=== PATIENT | female | born 1930 | race Caucasian/White ===

== ENCOUNTER 2018-04-25 19:59 | Inpatient (IN) | payer MEDICARE, BC ==
[~2018-04-25] VITALS: Ht 157.5 cm; Wt 63.5 kg
[2018-04-25] MEDS ORDERED: Z GUARD REMEDY PASTE 57 GM TUBE TOP PRN (20:15)
[2018-04-25] MEDS ORDERED: ACET-73 PO (20:22)
[2018-04-25] MEDS ORDERED: PRAS10TA5 PO (20:22)
[2018-04-25] MEDS ORDERED: TRAZ-213 PO (20:22)
[2018-04-25] MEDS ORDERED: ALPR0.5T8 PO (20:22)
[2018-04-25] MEDS ORDERED: METO50TA16 PO (20:22)
[2018-04-25] MEDS ORDERED: ENOX40DI SQ (20:22)
[2018-04-25] MEDS ORDERED: OXYC-128 PO (20:22)
[2018-04-25] MEDS ORDERED: ATOR40TA PO (20:22)
[2018-04-25] MEDS ORDERED: ASPI-605 PO (20:22)
[2018-04-25] MEDS ORDERED: OXYB10TA4 PO (20:22)
[2018-04-26 05:20] VITALS: BP 131/67
[2018-04-26 08:00] VITALS: BP 110/63
[2018-04-26] MEDS ORDERED: MISCELLANEOUS MED XX PRN (08:00)
[2018-04-26] MEDS ORDERED: OXYCODONE/APAP 5-325 MG TABLET PO PRN (08:00)
[2018-04-26] MEDS ORDERED: ACETAMINOPHEN ES 500 MG TABLET PO PRN (08:00)
[2018-04-26] MEDS: ALPRAZOLAM 0.5 MG TABLET PO SCH (09:23)
[2018-04-26] MEDS: OXYCODONE HCL 10 MG TAB.SR.12H PO SCH ×2 (09:36→21:04)
[2018-04-26] MEDS: OXYBUTYNIN XL 5 MG TABSR PO SCH (09:37)
[2018-04-26] MEDS: ENOXAPARIN SODIUM 40 MG/0.4 ML DISP.SYRIN SQ SCH (09:59)
[2018-04-26 16:00] VITALS: BP 95/50
[2018-04-26] MEDS: ASPIRIN EC 81 MG TABLET.DR PO SCH (17:09)
[2018-04-26] MEDS: OXYCODONE/APAP 5-325 MG TABLET PO PRN (17:10)
[2018-04-26] MEDS: TRAZODONE 50 MG TABLET PO SCH (21:02)
[2018-04-26] MEDS: ATORVASTATIN 40 MG TABLET PO SCH (21:02)
[2018-04-26] MEDS: METOPROLOL TARTRATE 50 MG TABLET PO SCH (21:03)
[2018-04-26 21:15] VITALS: BP 115/65
[2018-04-27 05:29] VITALS: BP 104/53
[2018-04-27 07:30] VITALS: BP 128/64
[2018-04-27] MEDS: OXYCODONE HCL 10 MG TAB.SR.12H PO SCH ×2 (08:54→20:59)
[2018-04-27] MEDS: ALPRAZOLAM 0.5 MG TABLET PO SCH (08:54)
[2018-04-27] MEDS: OXYBUTYNIN XL 5 MG TABSR PO SCH (08:55)
[2018-04-27] MEDS: ENOXAPARIN SODIUM 40 MG/0.4 ML DISP.SYRIN SQ SCH (09:00)
[2018-04-27] MEDS: OXYCODONE/APAP 5-325 MG TABLET PO PRN (14:44)
[2018-04-27 16:00] VITALS: BP 125/73
[2018-04-27] MEDS: ASPIRIN EC 81 MG TABLET.DR PO SCH (17:23)
[2018-04-27 20:35] VITALS: BP 129/67
[2018-04-27] MEDS: PRASUGREL 10 MG PO SCH (20:57)
[2018-04-27] MEDS: ATORVASTATIN 40 MG TABLET PO SCH (20:58)
[2018-04-27] MEDS: TRAZODONE 50 MG TABLET PO SCH (20:58)
[2018-04-27] MEDS: METOPROLOL TARTRATE 50 MG TABLET PO SCH (20:58)
[2018-04-28 05:05] VITALS: BP 96/57
[2018-04-28 07:35] VITALS: BP 92/45
[2018-04-28 07:48] LABS: ALANINE AMINOTRANSFERASE 16 U/L (14-59); ALKALINE PHOSPHATASE 60 U/L (50-136); ASPARTATE AMINOTRANSFERASE 18 U/L (15-37); BILIRUBIN,TOTAL 0.7 mg/dL (0.2-1.0); CARBON DIOXIDE 25 mmol/L (21-32); CHLORIDE 102 mmol/L (98-107); CREATININE 1.1 mg/dL (0.6-1.3); GLUCOSE 115 mg/dL (74-106); MAGNESIUM 1.8 mg/dL (1.8-2.4); PHOSPHOROUS 3.4 mg/dL (2.5-4.9); TOTAL PROTEIN, SERUM 6.8 g/dL (6.4-8.2); UREA NITROGEN, BLOOD 27 mg/dL (7-18)
[2018-04-28 07:49] LABS: BASOPHILS # (AUTO) 0.1 K/uL (0.0-8.0); BASOPHILS % (AUTO) 0.6 % (0.0-2.0); EOSINOPHILS # (AUTO) 0.4 K/uL (0.0-0.7); EOSINOPHILS % (AUTO) 3.7 % (0.0-7.0); HEMATOCRIT 28.3 % (31.2-41.9); HEMOGLOBIN 9.7 g/dL (10.9-14.3); LYMPHOCYTES # (AUTO) 2.6 K/uL (20.0-40.0); MEAN CORPUSCULAR HEMOGLOBIN 30.6 uug (24.7-32.8); MEAN CORPUSCULAR HGB CONC 34 g/dL (32.3-35.6); MEAN CORPUSCULAR VOLUME 89.3 fL (75.5-95.3); MONOCYTES # (AUTO) 0.9 K/uL (2.0-10.0); MONOCYTES % (AUTO) 7.8 % (0.0-11.0); NEUTROPHILS # (AUTO) 7.9 K/uL (1.8-8.9); NEUTROPHILS % (AUTO) 65.9 % (38.5-71.5); PLATELET COUNT (AUTO) 306 K/uL (179-408); RED BLOOD CELL COUNT(AUTO) 3.17 MIL/uL (3.63-4.92)
[2018-04-28] MEDS: OXYBUTYNIN XL 5 MG TABSR PO SCH (08:31)
[2018-04-28] MEDS: ENOXAPARIN SODIUM 40 MG/0.4 ML DISP.SYRIN SQ SCH (08:31)
[2018-04-28] MEDS: OXYCODONE/APAP 5-325 MG TABLET PO PRN (08:32)
[2018-04-28] MEDS: ALPRAZOLAM 0.5 MG TABLET PO SCH (08:32)
[2018-04-28] MEDS: OXYCODONE HCL 10 MG TAB.SR.12H PO SCH ×2 (08:33→20:56)
[2018-04-28 15:05] VITALS: BP 92/40
[2018-04-28] MEDS: ASPIRIN EC 81 MG TABLET.DR PO SCH (17:37)
[2018-04-28 19:30] VITALS: BP 119/62
[2018-04-28] MEDS: ATORVASTATIN 40 MG TABLET PO SCH (20:54)
[2018-04-28] MEDS: TRAZODONE 50 MG TABLET PO SCH (20:54)
[2018-04-28] MEDS: PRASUGREL 10 MG PO SCH (20:54)
[2018-04-28] MEDS: METOPROLOL TARTRATE 50 MG TABLET PO SCH (20:57)
[2018-04-29 04:20] VITALS: BP 102/51
[2018-04-29 07:26] LABS: BASOPHILS # (AUTO) 0.1 K/uL (0.0-8.0); BASOPHILS % (AUTO) 0.7 % (0.0-2.0); EOSINOPHILS # (AUTO) 0.3 K/uL (0.0-0.7); EOSINOPHILS % (AUTO) 2.7 % (0.0-7.0); HEMATOCRIT 26.8 % (31.2-41.9); HEMOGLOBIN 9.1 g/dL (10.9-14.3); LYMPHOCYTES # (AUTO) 1.7 K/uL (20.0-40.0); LYMPHOCYTES % (AUTO) 13.8 % (20.5-51.5); MEAN CORPUSCULAR HEMOGLOBIN 30.1 uug (24.7-32.8); MEAN CORPUSCULAR HGB CONC 34 g/dL (32.3-35.6); MEAN CORPUSCULAR VOLUME 88.8 fL (75.5-95.3); MONOCYTES % (AUTO) 8.7 % (0.0-11.0); NEUTROPHILS # (AUTO) 8.9 K/uL (1.8-8.9); NEUTROPHILS % (AUTO) 74.1 % (38.5-71.5); PLATELET COUNT (AUTO) 293 K/uL (179-408); RED BLOOD CELL COUNT(AUTO) 3.01 MIL/uL (3.63-4.92)
[2018-04-29 07:30] VITALS: BP 100/50
[2018-04-29 07:37] LABS: ALANINE AMINOTRANSFERASE 16 U/L (14-59); ALKALINE PHOSPHATASE 71 U/L (50-136); ASPARTATE AMINOTRANSFERASE 16 U/L (15-37); BILIRUBIN,TOTAL 0.7 mg/dL (0.2-1.0); CARBON DIOXIDE 26 mmol/L (21-32); CHLORIDE 102 mmol/L (98-107); GLUCOSE 118 mg/dL (74-106); MAGNESIUM 1.9 mg/dL (1.8-2.4); PHOSPHOROUS 3.7 mg/dL (2.5-4.9); POTASSIUM 3.8 mmol/L (3.5-5.1); TOTAL PROTEIN, SERUM 6.6 g/dL (6.4-8.2); UREA NITROGEN, BLOOD 25 mg/dL (7-18)
[2018-04-29] MEDS: OXYBUTYNIN XL 5 MG TABSR PO SCH (08:54)
[2018-04-29] MEDS: ALPRAZOLAM 0.5 MG TABLET PO SCH (08:55)
[2018-04-29] MEDS: OXYCODONE HCL 10 MG TAB.SR.12H PO SCH ×2 (08:55→21:08)
[2018-04-29] MEDS: ENOXAPARIN SODIUM 40 MG/0.4 ML DISP.SYRIN SQ SCH (08:57)
[2018-04-29 16:00] VITALS: BP 97/53
[2018-04-29] MEDS: ASPIRIN EC 81 MG TABLET.DR PO SCH (17:03)
[2018-04-29 19:30] VITALS: BP 105/55
[2018-04-29] MEDS: METOPROLOL TARTRATE 50 MG TABLET PO SCH (21:00)
[2018-04-29] MEDS: ATORVASTATIN 40 MG TABLET PO SCH (21:05)
[2018-04-29] MEDS: TRAZODONE 50 MG TABLET PO SCH (21:05)
[2018-04-29] MEDS: PRASUGREL 10 MG PO SCH (21:08)
[2018-04-29 22:51] LABS: *BILIRUBIN,URIN NEGATIVE (NEGATIVE); *BLOOD, URINE NEGATIVE (NEGATIVE); *CLARITY,URINE SLIGHTLY CLOUDY (CLEAR); *COLOR,URINE YELLOW (YELLOW); *KETONES,URINE NEGATIVE (NEGATIVE); *PROTEIN,URINE NEGATIVE (NEGATIVE); *UROBILINOGEN,URINE 0.2 E.U./dl (NORMAL); LEUKOCYTE ESTERASE ,URINE NEGATIVE (NEGATIVE); NITRITE, URINE NEGATIVE (NEGATIVE); PH,URINE 5.5 (5.0-8.0); UGLUCOSE NEGATIVE (NEGATIVE)
[2018-04-30 04:30] VITALS: BP 111/58
[2018-04-30 07:30] VITALS: BP 103/53
[2018-04-30] MEDS: ALPRAZOLAM 0.5 MG TABLET PO SCH (09:37)
[2018-04-30] MEDS: OXYBUTYNIN XL 5 MG TABSR PO SCH (09:38)
[2018-04-30] MEDS: OXYCODONE HCL 10 MG TAB.SR.12H PO SCH ×2 (09:38→20:53)
[2018-04-30] MEDS: ENOXAPARIN SODIUM 40 MG/0.4 ML DISP.SYRIN SQ SCH (09:39)
[2018-04-30 16:00] VITALS: BP 98/58
[2018-04-30] MEDS: ASPIRIN EC 81 MG TABLET.DR PO SCH (17:39)
[2018-04-30 19:30] VITALS: BP 107/53
[2018-04-30] MEDS: METOPROLOL TARTRATE 50 MG TABLET PO SCH (22:00)
[2018-04-30] MEDS: ATORVASTATIN 40 MG TABLET PO SCH (22:00)
[2018-04-30] MEDS: PRASUGREL 10 MG PO SCH (22:01)
[2018-04-30] MEDS: TRAZODONE 50 MG TABLET PO SCH (22:01)
[2018-05-01 04:00] VITALS: BP 105/58
[2018-05-01 07:24] LABS: BASOPHILS # (AUTO) 0.1 K/uL (0.0-8.0); BASOPHILS % (AUTO) 0.9 % (0.0-2.0); EOSINOPHILS # (AUTO) 0.6 K/uL (0.0-0.7); EOSINOPHILS % (AUTO) 5.8 % (0.0-7.0); HEMATOCRIT 24.6 % (31.2-41.9); HEMOGLOBIN 8.6 g/dL (10.9-14.3); LYMPHOCYTES # (AUTO) 2.5 K/uL (20.0-40.0); LYMPHOCYTES % (AUTO) 26.3 % (20.5-51.5); MEAN CORPUSCULAR HEMOGLOBIN 31.1 uug (24.7-32.8); MEAN CORPUSCULAR HGB CONC 35 g/dL (32.3-35.6); MONOCYTES # (AUTO) 0.8 K/uL (2.0-10.0); MONOCYTES % (AUTO) 8.8 % (0.0-11.0); NEUTROPHILS # (AUTO) 5.6 K/uL (1.8-8.9); NEUTROPHILS % (AUTO) 58.2 % (38.5-71.5); PLATELET COUNT (AUTO) 346 K/uL (179-408); RED BLOOD CELL COUNT(AUTO) 2.76 MIL/uL (3.63-4.92); WHITE BLOOD COUNT (AUTO) 9.6 K/uL (3.8-11.8)
[2018-05-01 08:00] VITALS: BP 88/45
[2018-05-01] MEDS: ALPRAZOLAM 0.5 MG TABLET PO SCH (09:18)
[2018-05-01] MEDS: OXYBUTYNIN XL 5 MG TABSR PO SCH (09:18)
[2018-05-01] MEDS: OXYCODONE HCL 10 MG TAB.SR.12H PO SCH ×2 (09:20→20:26)
[2018-05-01] MEDS: ENOXAPARIN SODIUM 40 MG/0.4 ML DISP.SYRIN SQ SCH (09:21)
[2018-05-01 16:00] VITALS: BP 95/52
[2018-05-01] MEDS: ASPIRIN EC 81 MG TABLET.DR PO SCH (17:01)
[2018-05-01] MEDS: PRASUGREL 10 MG PO SCH (20:21)
[2018-05-01] MEDS: TRAZODONE 50 MG TABLET PO SCH (20:21)
[2018-05-01] MEDS: ATORVASTATIN 40 MG TABLET PO SCH (20:21)
[2018-05-01] MEDS: METOPROLOL TARTRATE 50 MG TABLET PO SCH (20:26)
[2018-05-01 20:32] VITALS: BP 104/54
[2018-05-02] MEDS: OXYCODONE/APAP 5-325 MG TABLET PO PRN (04:06)
[2018-05-02 08:00] VITALS: BP 90/52
[2018-05-02] MEDS: ALPRAZOLAM 0.5 MG TABLET PO SCH (08:22)
[2018-05-02] MEDS: OXYCODONE HCL 10 MG TAB.SR.12H PO SCH ×2 (08:23→21:00)
[2018-05-02] MEDS: ENOXAPARIN SODIUM 40 MG/0.4 ML DISP.SYRIN SQ SCH (08:25)
[2018-05-02] MEDS: OXYBUTYNIN XL 5 MG TABSR PO SCH (09:01)
[2018-05-02 15:51] VITALS: BP 95/53
[2018-05-02] MEDS ORDERED: MAGNESIUM HYDROXIDE 30 ML LIQUID UDC PO PRN (16:15)
[2018-05-02] MEDS: ASPIRIN EC 81 MG TABLET.DR PO SCH (16:54)
[2018-05-02 20:29] VITALS: BP 98/47
[2018-05-02] MEDS: METOPROLOL TARTRATE 50 MG TABLET PO SCH (21:00)
[2018-05-02] MEDS: ATORVASTATIN 40 MG TABLET PO SCH (21:34)
[2018-05-02] MEDS: TRAZODONE 50 MG TABLET PO SCH (21:34)
[2018-05-02] MEDS: PRASUGREL 10 MG PO SCH (21:34)
[2018-05-03 04:40] VITALS: BP 111/54
[2018-05-03 07:05] LABS: BASOPHILS # (AUTO) 0.1 K/uL (0.0-8.0); BASOPHILS % (AUTO) 1.2 % (0.0-2.0); EOSINOPHILS # (AUTO) 0.5 K/uL (0.0-0.7); HEMATOCRIT 25.6 % (31.2-41.9); HEMOGLOBIN 8.8 g/dL (10.9-14.3); LYMPHOCYTES # (AUTO) 2.4 K/uL (20.0-40.0); LYMPHOCYTES % (AUTO) 29.1 % (20.5-51.5); MEAN CORPUSCULAR HEMOGLOBIN 30.6 uug (24.7-32.8); MEAN CORPUSCULAR HGB CONC 35 g/dL (32.3-35.6); MEAN CORPUSCULAR VOLUME 88.6 fL (75.5-95.3); MONOCYTES # (AUTO) 0.6 K/uL (2.0-10.0); MONOCYTES % (AUTO) 7.7 % (0.0-11.0); NEUTROPHILS # (AUTO) 4.6 K/uL (1.8-8.9); PLATELET COUNT (AUTO) 398 K/uL (179-408); RED BLOOD CELL COUNT(AUTO) 2.89 MIL/uL (3.63-4.92); WHITE BLOOD COUNT (AUTO) 8.2 K/uL (3.8-11.8)
[2018-05-03 07:13] LABS: ALANINE AMINOTRANSFERASE 36 U/L (14-59); ALKALINE PHOSPHATASE 70 U/L (50-136); ASPARTATE AMINOTRANSFERASE 29 U/L (15-37); BILIRUBIN,TOTAL 0.3 mg/dL (0.2-1.0); CARBON DIOXIDE 25 mmol/L (21-32); CHLORIDE 104 mmol/L (98-107); CREATININE 1.2 mg/dL (0.6-1.3); GLUCOSE 111 mg/dL (74-106); MAGNESIUM 1.7 mg/dL (1.8-2.4); PHOSPHOROUS 3.2 mg/dL (2.5-4.9); POTASSIUM 3.9 mmol/L (3.5-5.1); TOTAL PROTEIN, SERUM 6.7 g/dL (6.4-8.2); UREA NITROGEN, BLOOD 26 mg/dL (7-18)
[2018-05-03 07:35] VITALS: BP 99/50
[2018-05-03] MEDS: OXYCODONE HCL 10 MG TAB.SR.12H PO SCH (10:19)
[2018-05-03] MEDS: ALPRAZOLAM 0.5 MG TABLET PO SCH (10:20)
[2018-05-03] MEDS: OXYBUTYNIN XL 5 MG TABSR PO SCH (10:20)
[2018-05-03] MEDS: ENOXAPARIN SODIUM 40 MG/0.4 ML DISP.SYRIN SQ SCH (10:25)
[2018-05-03] MEDS ORDERED: MAGNESIUM OXIDE 400 MG TABLET PO ONE (12:30)
[2018-05-03 16:02] VITALS: BP 101/56
[2018-05-03] MEDS: ASPIRIN EC 81 MG TABLET.DR PO SCH (18:01)
[2018-05-03] MEDS ORDERED: OXYCODONE/APAP 5-325 MG TABLET PO PRN (19:15)
[2018-05-03] MEDS: PRASUGREL 10 MG PO SCH (20:37)
[2018-05-03] MEDS: METOPROLOL TARTRATE 25 MG TABLET PO SCH (20:37)
[2018-05-03] MEDS: MIRTAZAPINE 15 MG TABLET PO SCH (20:37)
[2018-05-03] MEDS: ATORVASTATIN 40 MG TABLET PO SCH (20:37)
[2018-05-03 21:00] VITALS: BP 103/52
[2018-05-04] MEDS: OXYCODONE/APAP 5-325 MG TABLET PO PRN (02:19)
[2018-05-04 06:48] VITALS: BP 106/63
[2018-05-04 07:15] LABS: CARBON DIOXIDE 27 mmol/L (21-32); CHLORIDE 107 mmol/L (98-107); CREATININE 1.1 mg/dL (0.6-1.3); GLUCOSE 108 mg/dL (74-106); PHOSPHOROUS 3.6 mg/dL (2.5-4.9); POTASSIUM 3.9 mmol/L (3.5-5.1); UREA NITROGEN, BLOOD 25 mg/dL (7-18)
[2018-05-04 07:42] LABS: BASOPHILS # (AUTO) 0.1 K/uL (0.0-8.0); BASOPHILS % (AUTO) 1.1 % (0.0-2.0); EOSINOPHILS # (AUTO) 0.5 K/uL (0.0-0.7); EOSINOPHILS % (AUTO) 5.7 % (0.0-7.0); HEMATOCRIT 25.2 % (31.2-41.9); HEMOGLOBIN 8.8 g/dL (10.9-14.3); LYMPHOCYTES # (AUTO) 2.3 K/uL (20.0-40.0); LYMPHOCYTES % (AUTO) 26.7 % (20.5-51.5); MEAN CORPUSCULAR HGB CONC 35 g/dL (32.3-35.6); MEAN CORPUSCULAR VOLUME 88.6 fL (75.5-95.3); MONOCYTES # (AUTO) 0.6 K/uL (2.0-10.0); MONOCYTES % (AUTO) 6.6 % (0.0-11.0); NEUTROPHILS # (AUTO) 5.3 K/uL (1.8-8.9); NEUTROPHILS % (AUTO) 59.9 % (38.5-71.5); PLATELET COUNT (AUTO) 431 K/uL (179-408); RED BLOOD CELL COUNT(AUTO) 2.84 MIL/uL (3.63-4.92); WHITE BLOOD COUNT (AUTO) 8.8 K/uL (3.8-11.8)
[2018-05-04 08:12] VITALS: BP 129/66
[2018-05-04] MEDS: ENOXAPARIN SODIUM 40 MG/0.4 ML DISP.SYRIN SQ SCH (09:31)
[2018-05-04] MEDS: VENLAFAXINE XR 37.5 MG CAP.SR.24H PO SCH (09:34)
[2018-05-04] MEDS: OXYBUTYNIN XL 5 MG TABSR PO SCH (09:34)
[2018-05-04] MEDS: ALPRAZOLAM 0.5 MG TABLET PO SCH (09:34)
[2018-05-04 17:03] VITALS: BP 155/79
[2018-05-04] MEDS: ASPIRIN EC 81 MG TABLET.DR PO SCH (17:10)
[2018-05-04 19:58] VITALS: BP 137/81
[2018-05-04] MEDS: ATORVASTATIN 40 MG TABLET PO SCH (20:38)
[2018-05-04] MEDS: METOPROLOL TARTRATE 25 MG TABLET PO SCH (20:38)
[2018-05-04] MEDS: MIRTAZAPINE 15 MG TABLET PO SCH (20:39)
[2018-05-04] MEDS: PRASUGREL 10 MG PO SCH (20:39)
[2018-05-05 05:06] VITALS: BP 126/68
[2018-05-05 07:30] VITALS: BP 139/69
[2018-05-05] MEDS: VENLAFAXINE XR 37.5 MG CAP.SR.24H PO SCH (08:33)
[2018-05-05] MEDS: OXYBUTYNIN XL 5 MG TABSR PO SCH (08:33)
[2018-05-05] MEDS: ALPRAZOLAM 0.5 MG TABLET PO SCH (08:33)
[2018-05-05] MEDS: ENOXAPARIN SODIUM 40 MG/0.4 ML DISP.SYRIN SQ SCH (08:34)
[2018-05-05 16:56] VITALS: BP 105/69
[2018-05-05] MEDS: ASPIRIN EC 81 MG TABLET.DR PO SCH (17:04)
[2018-05-05 20:41] VITALS: BP 140/81
[2018-05-05] MEDS: ATORVASTATIN 40 MG TABLET PO SCH (21:09)
[2018-05-05] MEDS: MIRTAZAPINE 15 MG TABLET PO SCH (21:09)
[2018-05-05] MEDS: METOPROLOL TARTRATE 25 MG TABLET PO SCH (21:10)
[2018-05-05] MEDS: PRASUGREL 10 MG PO SCH (21:11)
[2018-05-05] MEDS: ZOLPIDEM 5 MG TABLET PO PRN (22:49)
[2018-05-05] MEDS: OXYCODONE/APAP 5-325 MG TABLET PO PRN (23:20)
[2018-05-06 05:18] VITALS: BP 125/79
[2018-05-06 07:54] VITALS: BP 139/80
[2018-05-06] MEDS: ENOXAPARIN SODIUM 40 MG/0.4 ML DISP.SYRIN SQ SCH (08:39)
[2018-05-06] MEDS: VENLAFAXINE XR 37.5 MG CAP.SR.24H PO SCH (08:42)
[2018-05-06] MEDS: ALPRAZOLAM 0.5 MG TABLET PO SCH (08:42)
[2018-05-06] MEDS: OXYBUTYNIN XL 5 MG TABSR PO SCH (08:43)
[2018-05-06 16:09] VITALS: BP 147/81
[2018-05-06] MEDS: ASPIRIN EC 81 MG TABLET.DR PO SCH (17:01)
[2018-05-06 20:52] VITALS: BP 111/60
[2018-05-06] MEDS: MIRTAZAPINE 15 MG TABLET PO SCH (21:29)
[2018-05-06] MEDS: ATORVASTATIN 40 MG TABLET PO SCH (21:29)
[2018-05-06] MEDS: METOPROLOL TARTRATE 25 MG TABLET PO SCH (21:29)
[2018-05-06] MEDS: PRASUGREL 10 MG PO SCH (21:30)
[2018-05-06] MEDS: ZOLPIDEM 5 MG TABLET PO PRN (23:29)
[2018-05-07] MEDS: OXYCODONE/APAP 5-325 MG TABLET PO PRN (01:51)
[2018-05-07 07:45] VITALS: BP 118/60
[2018-05-07] MEDS: ALPRAZOLAM 0.5 MG TABLET PO SCH (08:43)
[2018-05-07] MEDS: OXYBUTYNIN XL 5 MG TABSR PO SCH (08:43)
[2018-05-07] MEDS: VENLAFAXINE XR 37.5 MG CAP.SR.24H PO SCH (08:43)
[2018-05-07] MEDS: ENOXAPARIN SODIUM 40 MG/0.4 ML DISP.SYRIN SQ SCH (08:47)
[2018-05-07 16:02] VITALS: BP 127/97
== END 2018-05-07 16:40 | DRG 559 ==
PROVIDERS: ADMIT Physical Medicine & Rehabilitation Pain Medicine; ATTEND Physical Medicine & Rehabilitation Pain Medicine
DX: Z47.89 Encounter for other orthopedic aftercare (principal); N17.0 Acute kidney failure with tubular necrosis; D62 Acute posthemorrhagic anemia; E46 Unspecified protein-calorie malnutrition; E78.5 Hyperlipidemia, unspecified; H91.90 Unspecified hearing loss, unspecified ear; I10 Essential (primary) hypertension; I25.2 Old myocardial infarction; I25.10 Atherosclerotic heart disease of native coronary artery without angina pectoris; I34.0 Nonrheumatic mitral (valve) insufficiency; M19.90 Unspecified osteoarthritis, unspecified site; K76.0 Fatty (change of) liver, not elsewhere classified; Z91.81 History of falling; R53.1 Weakness; R33.9 Retention of urine, unspecified; K59.00 Constipation, unspecified; M51.16 Intervertebral disc disorders with radiculopathy, lumbar region; Z87.891 Personal history of nicotine dependence; Z89.511 Acquired absence of right leg below knee; G89.29 Other chronic pain; R42 Dizziness and giddiness; F39 Unspecified mood [affective] disorder; Z87.440 Personal history of urinary (tract) infections
CPT/HCPCS: 36415; 71045; 83735; 84100; 85025; 87040; 87086; 92523; 92526; 92610; 97110; 97112; 97116; 97530; 97535; A4217; A4663; J1650

== ENCOUNTER 2020-10-08 18:21 | Emergency (ER) | payer BC, MEDICARE ==
[~2020-10-08] VITALS: Ht 152.4 cm; Wt 67.6 kg
[~2020-10-08 18:21] MED LIST: ACET-73 PO; ALPR0.5T8 PO; ASPI-605 PO; ATOR40TA PO; ENOX40DI SQ; METO50TA16 PO; OXYB10TA4 PO; OXYC-128 PO; PRAS10TA5 PO; TRAZ-252 PO
--- NOTE | 2020-10-08 18:28 | NUR ---
Pt brought in by RA 88, d/t unwitnessed fall from [facility]. per EMS: pt was found sitting at edge of bed, then staff found pt on floor. Pt NAD VSS RA, pt denies pain. with diaper, estevez cath intact with urine at level 300mL. pt aox3. srx2 up, bed at lowest position
--- NOTE | 2020-10-08 18:51 | NUR ---
[facility] [phone]
[2020-10-08 18:54] LABS: BASOPHILS # (AUTO) 0.1 K/uL (0.0-8.0); BASOPHILS % (AUTO) 0.9 % (0.0-2.0); EOSINOPHILS # (AUTO) 0.2 K/uL (0.0-0.7); EOSINOPHILS % (AUTO) 2.4 % (0.0-7.0); HEMATOCRIT 34.1 % (31.2-41.9); HEMOGLOBIN 11.9 g/dL (10.9-14.3); LYMPHOCYTES # (AUTO) 2.2 K/uL (20.0-40.0); LYMPHOCYTES % (AUTO) 21.8 % (20.5-51.5); MEAN CORPUSCULAR HEMOGLOBIN 29.1 uug (24.7-32.8); MEAN CORPUSCULAR HGB CONC 35 g/dL (32.3-35.6); MEAN CORPUSCULAR VOLUME 83.1 fL (75.5-95.3); MONOCYTES # (AUTO) 0.7 K/uL (2.0-10.0); MONOCYTES % (AUTO) 7.2 % (0.0-11.0); NEUTROPHILS # (AUTO) 6.8 K/uL (1.8-8.9); NEUTROPHILS % (AUTO) 67.7 % (38.5-71.5); PLATELET COUNT (AUTO) 348 K/uL (179-408); WHITE BLOOD COUNT (AUTO) 10.1 K/uL (3.8-11.8)
[2020-10-08 19:05] LABS: CREATININE 1.3 mg/dL (0.6-1.3); POTASSIUM 3.9 mmol/L (3.5-5.1)
[2020-10-08 19:11] LABS: BILIRUBIN,TOTAL 0.3 mg/dL (0.2-1.0); TOTAL PROTEIN, SERUM 7.2 g/dL (6.4-8.2)
[2020-10-08] MEDS ORDERED: HALOPERIDOL LACTATE 5 MG/1 ML VIAL IM ONE (19:45)
[2020-10-08] MEDS ORDERED: diphenhydrAMINE 50 MG/1 ML VIAL IM ONE (19:45)
[2020-10-08] MEDS ORDERED: LORAZEPAM 2 MG/1 ML VIAL IM ONE (19:45)
--- NOTE | 2020-10-08 20:00 | NUR ---
pt started yelling and asking for her mother. pt also stated she has claustrophobia and is scared to go to CT. reoriented with plan of care but inconsolable. started yelling repeatedly and agitated, and uncooperative. pt is aox3 with intermitten confusion d/t diagnosis ERMD aware.
[2020-10-08] MEDS ORDERED: diphenhydrAMINE 50 MG/1 ML VIAL ONE (20:03)
[2020-10-08] MEDS ORDERED: HALOPERIDOL LACTATE 5 MG/1 ML VIAL ONE (20:04)
[2020-10-08] MEDS ORDERED: LORAZEPAM 2 MG/1 ML VIAL ONE (20:06)
--- NOTE | 2020-10-08 20:15 | NUR ---
sent to CT via gurney, accompanied by tech. wellington hernandez ra calm and compliant
--- NOTE | 2020-10-08 22:00 | NUR ---
Per pt may be discharged back to [facility], called [facility] for transport, eta 90 mins.
--- NOTE | 2020-10-09 00:12 | NUR ---
Pt d/c back to [facility] via [facility]. NAD noted up d/c, written ACI given to EMT.
[2020-10-09 00:14] VITALS: BP 128/69
== END 2020-10-09 00:14 ==
LOC: ER 18:24
DX: Z04.3 Encounter for examination and observation following other accident (principal); E87.1 Hypo-osmolality and hyponatremia; Z91.81 History of falling; I25.2 Old myocardial infarction; Z87.440 Personal history of urinary (tract) infections; Z89.611 Acquired absence of right leg above knee; M47.896 Other spondylosis, lumbar region; F03.90 Unspecified dementia, unspecified severity, without behavioral disturbance, psychotic disturbance, mood disturbance, and anxiety; Z79.82 Long term (current) use of aspirin; Z79.899 Other long term (current) drug therapy; Z79.01 Long term (current) use of anticoagulants
CPT/HCPCS: 36415; 70450; 72125; 80053; 84484; 85025; 93005; 96372 ×2; 99285; J1200; J1630; J2060; 70030-TC; A4663

== ENCOUNTER 2020-10-17 19:44 | Emergency (ER) | payer BC ==
[~2020-10-17] VITALS: Ht 165.1 cm; Wt 66.8 kg
--- NOTE | 2020-10-17 20:00 | NUR ---
MD Keagan George at bedside to do MSE.
--- NOTE | 2020-10-17 20:00 | NUR ---
Patient BIB [id number] from [facility]. Patient c/c: unwitnessed fall, L forearm avulsion. Patient was stated have been found on the floor.
--- NOTE | 2020-10-17 20:10 | NUR ---
Patient taken by biometric fingerprinting technician out for x-ray and CT scan.
[2020-10-17] MEDS ORDERED: CEPH500C2 PO (21:17)
[2020-10-17] MEDS ORDERED: CEphaleXIN 500 MG CAPSULE PO ONE (21:30)
[2020-10-17] MEDS ORDERED: TDAP DIPH,PERTUSS,TET VAC/PF 0.5 ML DISP.SYRIN IM ONE ×2 (21:30→22:05)
--- NOTE | 2020-10-17 21:38 | NUR ---
CALLED [facility] TO TRANSPORT PATIENT BACK TO [facility]. ETA IS 30MINS.
[2020-10-17] MEDS ORDERED: CEphaleXIN 500 MG CAPSULE ONE (22:04)
--- NOTE | 2020-10-17 22:05 | NUR ---
Patient unable to give expressed consent for vaccine. MD Keagan George made aware.
--- NOTE | 2020-10-17 22:25 | NUR ---
Troy viramontes in EDM - 10/17/20 at 2228 by CHAYITO Patient discharged to [facility] in stable condition with [facility] ambulance 295. Written and verbal after care instructions given to ambulance unit. Ambulance unit verbalizes understanding of instructions. Stressed follow up or return to ER for worsening s/s.
--- NOTE | 2020-10-17 22:28 | NUR ---
Patient discharged to [facility] in stable condition with [facility] ambulance 295. Written and verbal after care instructions given to ambulance unit. Ambulance unit verbalizes understanding of instructions. Stressed follow up or return to ER for worsening s/s. Patient transported home via gurney, v/s stable, Rx given to ambulance crew to deliver, all personal belongings taken with patient.
[2020-10-17 22:30] VITALS: BP 129/78
== END 2020-10-17 22:30 ==
LOC: ER 19:46
DX: S51.812A Laceration without foreign body of left forearm, initial encounter (principal); W18.30XA Fall on same level, unspecified, initial encounter; Z91.81 History of falling; Y92.099 Unspecified place in other non-institutional residence as the place of occurrence of the external cause; S40.022A Contusion of left upper arm, initial encounter; S40.021A Contusion of right upper arm, initial encounter; S80.12XA Contusion of left lower leg, initial encounter; S00.83XA Contusion of other part of head, initial encounter; Z89.611 Acquired absence of right leg above knee; I25.2 Old myocardial infarction; F03.90 Unspecified dementia, unspecified severity, without behavioral disturbance, psychotic disturbance, mood disturbance, and anxiety; M19.90 Unspecified osteoarthritis, unspecified site; Z79.01 Long term (current) use of anticoagulants; Z79.899 Other long term (current) drug therapy; M47.892 Other spondylosis, cervical region; M47.896 Other spondylosis, lumbar region
CPT/HCPCS: 70450; 72125; 73090; 90715; A4663